=== PATIENT | male | born 1940 | race Caucasian/White ===

== ENCOUNTER 2022-03-14 12:02 | Outpatient (CLI) | payer MEDICARE, SELFPAY ==
[2022-03-14 19:40] LABS: Basophils Absolute Auto 0.1 K/mm3 (0.0-0.1); Basophils Percent Auto 0.9 % (0.2-1.2); Eosinophils Absolute Auto 0.4 K/mm3 (0-0.3); Eosinophils Percent Auto 4.8 % (0-4.4); Hemoglobin 15.3 g/dL (14.0-18.0); Immature Granulocyte Absolute 0.02 K/mm3 (0.00-0.031); Immature Granulocyte Percent A 0.3 % (0-0.5); Lymphocytes Absolute Auto 1.67 K/mm3 (0.9-3.2); Lymphocytes Percent Auto 21.7 % (18.3-44.2); Mean Corpuscular Hemoglobin 32.5 pg (26-34); Mean Corpuscular Volume 95.5 fl (80-100); Mean Platelet Volume 9.9 fl (7.4-10.4); Monocytes Percent Auto 12.9 % (2.6-8.5); Neutrophils Absolute Auto 4.6 K/mm3 (1.3-6.7); Neutrophils Percent Auto 59.4 % (45.5-73.1); Platelet Count Result 211 k/mm3 (150-375); Red Blood Count 4.71 M/mm3 (4.6-6.20); Red Cell Distribution Width 13.1 % (11.5-14.5); White Blood Count 7.7 K/mm3 (4.5-10.0)
[2022-03-14 19:56] LABS: Alanine Aminotransferase 50 U/L (6-50); Albumin Level 4.3 g/dL (3.5-5.1); Alkaline Phosphatase 74 U/L (38-126); Anion Gap 12 mmol/L (8-16); Aspartate Amino Transferase 41 U/L (17-59); Bilirubin,Total 0.9 mg/dL (0.2-1.3); Blood Urea Nitrogen 19 mg/dL (9-20); Calcium 8.8 mg/dL (8.4-10.2); Carbon Dioxide 25 mmol/L (22-30); Chloride 101 mmol/L (98-107); Estimated Glomerular Filt Rate > 60; Glucose 107 mg/dL (65-110); Potassium 4.1 mmol/L (3.4-5.0); Sodium 138 mmol/L (137-145)
== END 2022-03-14 12:03 | disposition home or self-care (01) ==
LOC: ANHGOSHLAB 12:07
PROVIDERS: PCP Family Medicine; Visit Provider Family Medicine
DX: R53.83 Other fatigue (principal)
CPT/HCPCS: 36415; 80053; 84443; 85025

== ENCOUNTER 2022-04-14 07:56 | Outpatient (CLI) | payer MEDICARE, SELFPAY ==
--- NOTE | 2022-05-05 21:16 | WPDSLEEPSTUD ---
Sleep Study Date of Study: 04/14/22 Ordering Provider: Minesh León MD Interpreting Physician: Rut Enrique MD Sleep Study Type: Split Polysomnogram Height: 1.83 m Weight: 104.326 kg Body Mass Index: 31.1 Neck Circumference (inches): 18 [place]: 2 Reason for Sleep Study Long periods of sleep, 10-12 hours, always tired in the day Sleep History Carlos Joshi is an 81-year-old man who a sleeps 10-12 hours at night yet is always tired in the day. He does not awaken from sleep feeling short of breath or awaken at night with heartburn, belching or coughing. He rarely snores and rarely is it loud enough that others complain about it. Occasionally has trouble sleeping with a cold. He does not wake up gasping for breath at night. He rarely has breathing problems at night observed by others. He rarely sweats excessively at night or notices his heart pounding or beating irregularly at night. He rarely falls asleep during the day, never falls asleep involuntarily or while driving. He does not have loss of muscle tone with strong emotion. He does not have daytime difficulties due to excessive sleepiness. He does not feel paralyzed on waking or falling asleep. He rarely has vivid dreamlike scenes on waking or falling asleep. He does not feel afraid to go to sleep. He rarely has nightmares. He rarely remembers his dreams. He does not have racing thoughts. He rarely feels sad, depressed or anxious. He does not have muscular tension. He rarely notices parts of his body jerking. He does not kick at night. He does not have crawling or aching feelings in his legs or any kind of leg pain at night. He does not have morning jaw pain and does not grind his teeth during sleep. He rarely is bothered by pain during the day rarely awakened by pain at night. He does not wake up feeling stiff in the morning. He rarely wakes up with sore or achy muscles. He does not wake up with pain in the neck and spine. He has fatigue and tremors. Normal Bedtime is 9:00 p.m. falling asleep within a 1/2 hour, typically waking 2-3 times at night, goes to the bathroom while awaken returns to sleep within 5 minutes. His normal wake time is a.m.. On weekends, he may stay awake until 10:00 p.m., wakes at 8:00 a.m.. He takes naps in the afternoon. A short nap is not refreshing. He is drowsy for 3 hours after waking. He feels better in the afternoon compared to other times of day. Only on occasion does he awaken feeling refreshed. Habits: former tobacco smoker. No caffeine. Alcohol 2-3 drinks a day. No recreational drugs. FORMERLY [facility], [facility] Past Medical History Medical History (Updated 05/05/22 @ 21:42 by Rut Enrique MD) Adjustment disorder with depressed mood Essential (primary) hypertension Essential tremor Generalized anxiety disorder Obesity (BMI 30.0-34.9) Surgical History Surgical History History of toe surgery History of tonsillectomy Family History Family History Father Family history of cardiovascular disease Acute myocardial infarction Family history of coronary artery disease Mother Family history of malignant neoplasm of breast in first degree relative Other Hypertension No family history of malignant neoplasm Social History Social History Smoking status: Never smoker Second hand tobacco smoke exposure: No Smoking end date: 05/18/88 Alcohol intake: current Drinks per week: 12 Substance use: never Substance use type: does not use Gender identity (if verbalized by the patient): Male Spiritual care concerns: Yes (Religious) Agree to blood products: Yes Medications Home Medications Medication Instructions Recorded Confirmed Type tadalafil 20 mg tablet (Cialis) 20 mg PO DAILY PRN sexual activity 11/21/19
[2022-05-05 21:44] VITALS: BMI 31.1
--- NOTE | 2022-11-11 15:37 | SLEEP ---
PT IS USING DEVICE NIGHTLY F/U AFTER PT VISIT W/ MD
== END 2022-04-15 06:46 | disposition home or self-care (01) ==
LOC: ANHCSM 07:56
PROVIDERS: PCP Family Medicine; Visit Provider Family Medicine
DX: R53.83 Other fatigue (principal); G47.8 Other sleep disorders; G47.33 Obstructive sleep apnea (adult) (pediatric)
CPT/HCPCS: 95811

== ENCOUNTER 2022-11-14 12:32 | Outpatient (CLI) | payer MEDICARE, SELFPAY ==
[2022-11-14 15:22] LABS: Basophils Absolute Auto 0.1 K/mm3 (0.0-0.1); Eosinophils Absolute Auto 0.4 K/mm3 (0-0.3); Eosinophils Percent Auto 5.9 % (0-4.4); Hematocrit 43.5 % (42.0-52.0); Hemoglobin 14.9 g/dL (14.0-18.0); Immature Granulocyte Absolute 0.01 K/mm3 (0.00-0.031); Immature Granulocyte Percent A 0.1 % (0-0.5); Lymphocytes Absolute Auto 1.62 K/mm3 (0.9-3.2); Mean Corpuscular HGB Conc 34.3 g/dl (32-36); Mean Corpuscular Hemoglobin 32.4 pg (26-34); Mean Corpuscular Volume 94.6 fl (80-100); Mean Platelet Volume 9.8 fl (7.4-10.4); Monocytes Absolute Auto 0.9 K/mm3 (0.1-0.6); Monocytes Percent Auto 13.5 % (2.6-8.5); Neutrophils Absolute Auto 3.8 K/mm3 (1.3-6.7); Neutrophils Percent Auto 55.5 % (45.5-73.1); Platelet Count Result 222 k/mm3 (150-375); Red Cell Distribution Width 13.1 % (11.5-14.5); White Blood Count 6.8 K/mm3 (4.5-10.0)
[2022-11-14 17:00] LABS: Creatinine Urine 41.1 mg/dL
[2022-11-14 18:15] LABS: MALB Creatinine Ratio 967.4 mg/g (0-30); Microalbumin Urine Random 397.6 mg/L (0-16.7)
[2022-11-14 18:28] LABS: Hemoglobin A1C 5.3 % (<5.7)
[2022-11-14 18:50] LABS: Alanine Aminotransferase 40 U/L (6-50); Albumin Level 4.1 g/dL (3.5-5.1); Alkaline Phosphatase 72 U/L (38-126); Anion Gap 4 mmol/L (8-16); Aspartate Amino Transferase 47 U/L (17-59); Bilirubin,Total 1.1 mg/dL (0.2-1.3); Blood Urea Nitrogen 17 mg/dL (9-20); Calcium 8.9 mg/dL (8.4-10.2); Carbon Dioxide 31 mmol/L (22-30); Chloride 102 mmol/L (98-107); Cholesterol 170 mg/dL (0-200); Estimated Glomerular Filt Rate > 60; Glucose 80 mg/dL (65-110); HDL Direct 47 mg/dL; Potassium 3.7 mmol/L (3.4-5.0); Sodium 137 mmol/L (137-145); Triglycerides 137 mg/dL (<150)
[2022-11-14 19:01] LABS: LDL Cholesterol Direct 90 mg/dL
== END 2022-11-14 12:33 | disposition home or self-care (01) ==
LOC: ANHGOSHLAB 12:33
PROVIDERS: PCP Family Medicine; Visit Provider Family Medicine
DX: E11.9 Type 2 diabetes mellitus without complications (principal); F32.9 Major depressive disorder, single episode, unspecified; G25.0 Essential tremor; R27.0 Ataxia, unspecified; R53.83 Other fatigue; E78.5 Hyperlipidemia, unspecified
CPT/HCPCS: 36415; 80053; 80061; 82043; 82607; 83036; 84443; 85025

== ENCOUNTER → 2022-11-21 10:39 | Outpatient (CLI) | payer MEDICARE, SELFPAY ==
--- NOTE | ~2022-11-21 | MR_ITS ---
EXAMINATION: MR brain/brain stem wo con DATE: 11/21/2022 11:30 INDICATION: Ataxia, unspecified. TECHNIQUE: Magnetic resonance imaging (MRI) of the brain and brainstem was performed without intraven ous contrast. COMPARISON: None. FINDINGS: There is diffuse brain volume loss. There are scattered areas of nonspecific increased T2-w eighted signal intensity in the cerebral white matter, which is within normal limits for the patient' s age. There is no intracranial hemorrhage, acute infarction, or abnormal intracranial mass lesion. T he ventricles are normal in size. There is mucosal thickening in the paranasal sinuses. There are lik courtney changes of ocular lens replacement surgeries. The mastoid air cells are normal. IMPRESSION: 1. Normal aging brain. Reviewed, dictated and finalized at location A. IMPRESSION: 1. Normal aging brain.
== END ==
PROVIDERS: PCP Family Medicine; Visit Provider Family Medicine
DX: R27.0 Ataxia, unspecified (principal)
CPT/HCPCS: 70551

== ENCOUNTER 2023-01-09 13:05 | Outpatient (CLI) | payer MEDICARE, SELFPAY ==
--- NOTE | ~2023-01-09 | US_ITS ---
US renal BI 01/09/2023 13:39 Procedure: Realtime transabdominal ultrasound of the kidneys and bladder. Indication: Proteinuria Comparison: No prior studies for comparison. Findings: Renal echotexture is normal bilaterally without hydronephrosis, contour deforming mass or r enal calculus. The right kidney measures 13.1 cm and left kidney measures 13.7 cm. There is an enlarg ed prostate gland. Bladder within normal limits. Impression: 1: Enlarged prostate gland. Reviewed, dictated and finalized at location B. Impression: 1: Enlarged prostate gland.
== END 2023-01-09 13:06 | disposition home or self-care (01) ==
PROVIDERS: PCP Family Medicine; Visit Provider Internal Medicine Nephrology
DX: R80.9 Proteinuria, unspecified (principal); N40.0 Benign prostatic hyperplasia without lower urinary tract symptoms
CPT/HCPCS: 76775

== ENCOUNTER 2023-08-17 13:32 | Outpatient (CLI) | payer MEDICARE, SELFPAY ==
--- NOTE | ~2023-08-17 | XR_ITS ---
XR knee LT 3V DATE: 08/17/2023 13:48 INDICATION: Left knee pain TECHNIQUE: [place], AP and lateral views COMPARISON: None FINDINGS: There is patellofemoral joint space narrowing and periarticular spurring. There is moderate ly prominent loss of lateral department joint space with periarticular spurring. No fracture or dislocation or significant joint effusion is evident. No periosteal reaction or bone d estruction. No radiopaque intra-articular loose body or chondrocalcinosis is noted. IMPRESSION: Moderately severe osteoarthritis involving particularly the patellofemoral and lateral co mpartments Reviewed, dictated and finalized at location B. IMPRESSION: Moderately severe osteoarthritis involving particularly the patello femoral and lateral compartments
--- NOTE | ~2023-08-17 | XR_ITS ---
XR knee RT 3V DATE: 08/17/2023 13:48 INDICATION: Right knee pain TECHNIQUE: AP, lateral, sunrise views COMPARISON: None FINDINGS: there is joint space narrowing and periarticular spurring at the patellofemoral and lateral compartments. No fracture or dislocation or joint effusion, periosteal reaction or bone destruction, radiopaque int ra-articular loose body. IMPRESSION: Moderately severe osteoarthritis involving the patellofemoral and lateral compartments Reviewed, dictated and finalized at location B. IMPRESSION: Moderately severe osteoarthritis involving the patellofemoral and l ateral compartments
== END 2023-08-17 13:33 ==
PROVIDERS: PCP Family Medicine; Visit Provider Family Medicine
DX: M25.562 Pain in left knee (principal); M25.561 Pain in right knee; M17.0 Bilateral primary osteoarthritis of knee
CPT/HCPCS: 73562

== ENCOUNTER 2023-09-17 14:00 | Outpatient (RCR) | payer MEDICARE, SELFPAY ==
--- NOTE | 2023-08-27 16:21 | OPREHPOC ---
Outpatient Therapy Plan of Care This is a Multidisciplinary Plan of Care that may contain components documented by all disciplines (PT, OT, and ST.) PT Problem 1 PT Problem #1 Knowledge Deficit PT Goal 1 Goal Pt to be IND with issued HEP Target Visit 8 PT Problem 2 PT Problem #2 Impaired Balance PT Goal 1 Goal Pt to improve single leg stance to 10s ea side. Target Visit 8 PT Goal 2 Goal Pt to be able to maintain eyes closed position for 10s. Target Visit 8 PT Problem 3 PT Problem #3 Impaired Strength PT Goal 1 Goal Pt to demonstrates a functional life and carry with 20lb from ground level Target Visit 8 PT Problem 4 PT Problem #4 Impaired Gait PT Goal 1 Goal Pt to be able to ambulate for 2 mins without a LOB . Target Visit 8 PT Goal 2 Goal Pt to limit scissoring gait pattern during ambulation. Target Visit 8
--- NOTE | 2023-08-27 16:21 | PTOPEVAL1 ---
Assessment and note entered by Petar Bustillo, PT, DPT Evaluation Information Assessment Status Evaluation Diagnosis ataxia, dave knee OA Subjective Information Pt reports severe arthritis is both knees, he wears dave knee braces. He reports he normally wears knee braces in the winter when his arthritis is worse, he states it does not feel like he could take them off now. He states his equilibrium also seems off as well has L sided finger numbness, states he is seeing a neurologist for this next week. He states because of knee pain, balance, and uncertainty with his knee, he limits how far he walks. He declines any pain when at rest, at 5/10 at its worst. He declines any falls. Pt takes care of his own housework and does light yard work. Reported Pain Level Pain Score 0: Self Report Assessment PT Clinical Summary Carlos presents to therapy today for his initial evaluation with a diagnosis of ataxia and dave knee OA. Today he demonstrates fair LE strength with functional movement assessment, he has limited hip ROM into extension. He ambulates with a flexed posture, a narrow stance, and with decreased foot clearance. He stumbles multiple times during the 2 min walk assessment. Skilled therapy services are indicated to improve balance, strength, functional mobility, and to minimize fall risk. Plan of Care Interventions Electrical Stimulation,Gait Training,Hot Pack/Cold Pack,Manual Therapy,Neuro Re-education,Patient/ Caregiver Educati,Therapeutic Activities, Therapeutic Exercise PT Services Indicated Yes Treatment Frequency and 2x/wk for 8 visits Duration These treatments will address the objective and functional deficits as defined above. The patient will be advanced safely and appropriately in order for the patient to progress towards his/her prior level of function. Additional exercises will be introduced and as well as a comprehensive home exercise program upon discharge, if needed, ?to ensure carryover of functional gains achieved in the clinic. This treatment plan has been reviewed and agreement upon by the patient.
--- NOTE | 2023-10-13 15:05 | PTOPDC ---
Assessment and note entered by Markel Alberto, PT Evaluation Information Assessment Status Discharge - Pt Not Present Diagnosis ataxia, dave knee OA Subjective Information Patient contacted clinic to inform that he was going to be seeking knee surgery at this time. Requested discharge from skilled therapy. Assessment PT Clinical Summary Patient to be discharged from skilled therapy at this time for dave knee pain. Patient was present for 7 visits. Patient has HEP issued to continue exercise at home as needed. Plan of Care PT Services Indicated D/C to HEP per patient request
== END 2023-10-13 15:32 | disposition home or self-care (01) ==
LOC: ANHGOSHPT 14:00
PROVIDERS: PCP Family Medicine; Visit Provider Family Medicine
DX: M17.0 Bilateral primary osteoarthritis of knee (principal); R27.0 Ataxia, unspecified
CPT/HCPCS: 97110; 97112; 97161; 97530

== ENCOUNTER 2024-01-19 12:25 | Outpatient (CLI) | payer MEDICARE, SELFPAY ==
--- NOTE | 2024-01-19 14:45 | NEURO_ITS ---
Impression: # Complains of numbness of feet. # Normal Nerve Conduction Study. # Normal needle/EMG exam. # Possibility of higher involvement needs to be ruled out. Nerve Conduction Studies Anti Sensory Summary Table Stim Site NR Peak (ms) P-T Amp (?V) Site1 Site2 Delta-P (ms) Dist (cm) Antony (m/s) Left Sup Fibular Anti Sensory (Ant Lat Mall) 14 cm 3.4 15.0 14 cm Ant Lat Mall 3.4 16.0 47 Right Sup Fibular Anti Sensory (Ant Lat Mall) 14 cm 3.3 13.0 14 cm Ant Lat Mall 3.3 16.0 48 Left Sural Anti Sensory (Lat Mall) Calf 3.8 12.0 Calf Lat Mall 3.8 16.0 42 Right Sural Anti Sensory (Lat Mall) Calf 3.8 10.2 Calf Lat Mall 3.8 16.0 42 Motor Summary Table Stim Site NR Onset (ms) O-P Amp (mV) Site1 Site2 Delta-0 (ms) Dist (cm) Antony (m/s) Left Peroneal Motor (Vastus Med) Ankle 4.3 5.4 Popit Ankle 9.5 42.0 44 Popit 13.8 3.6 Right Peroneal Motor (Vastus Med) Ankle 4.5 2.8 Popit Ankle 9.1 40.0 44 Popit 13.6 1.9 Left Tibial Motor (Abd Simpson Brev) Ankle 5.0 2.7 Knee Ankle 9.2 44.0 48 Knee 14.2 1.4 Right Tibial Motor (Abd Simpson Brev) Ankle 4.8 2.2 Knee Ankle 9.8 42.0 43 Knee 14.6 1.5 F Wave Studies NR F-Lat (ms) L-R F-Lat (ms) Left Peroneal (Mrkrs) (EDB) 56.10 0.16 Right Peroneal (Mrkrs) (EDB) 55.94 0.16 Left Tibial (Mrkrs) (Abd Hallucis) 57.47 0.65 Right Tibial (Mrkrs) (Abd Hallucis) 56.82 0.65 EMG Side Muscle Nerve Root Ins Act Fibs Amp Dur Recrt Comment Right AntTibialis Dp Br Fibular L4-5 Nml Nml Nml Nml Nml Right Gastroc Tibial S1-2 Nml Nml Nml Nml Nml Right Fibularis Long Sup Br Fibular L5-S1 Nml Nml Nml Nml Nml Right Flex Dig Long Tibial L5-S2 Nml Nml Nml Nml Nml Right Ext Dig Brev Dp Br Fibular L5, S1 Nml Nml Nml Nml Nml Right QuadratusFem QuadFemoris L4-5, S1 Nml Nml Nml Nml Nml Left AntTibialis Dp Br Fibular L4-5 Nml Nml Nml Nml Nml Left Gastroc Tibial S1-2 Nml Nml Nml Nml Nml Left Fibularis Long Sup Br Fibular L5-S1 Nml Nml Nml Nml Nml Left Flex Dig Long Tibial L5-S2 Nml Nml Nml Nml Nml Left Ext Dig Brev Dp Br Fibular L5, S1 Nml Nml Nml Nml Nml Left QuadratusFem QuadFemoris L4-5, S1 Nml Nml Nml Nml Nml MTDD
== END 2024-01-19 12:26 | disposition home or self-care (01) ==
LOC: ANHNEURO 12:28
PROVIDERS: PCP Family Medicine; Visit Provider Student in an Organized Health Care Education/Training Program
DX: G62.9 Polyneuropathy, unspecified (principal); R26.81 Unsteadiness on feet; R20.2 Paresthesia of skin
CPT/HCPCS: 95886; 95910

== ENCOUNTER 2024-04-06 19:47 | Emergency (ER) | payer MEDICARE, SELFPAY ==
--- NOTE | ~2024-04-06 | CT_ITS ---
EXAMINATION: CT brain wo con DATE: 04/06/2024 21:02 INDICATION: Head injury. TECHNIQUE: Computed tomography (CT) of the head was performed without intravenous contrast. The mA wa s adjusted according to patient size. Iterative reconstruction technique was employed. The dose-lengt h product was 681.00 mGy-cm. COMPARISON: Brain MRI 11/21/2022 FINDINGS: There is no intracranial hemorrhage, acute infarction, or abnormal intracranial mass lesion . The ventricles are normal in size. There are likely changes of ocular lens replacement surgeries. T here is mucosal thickening in the paranasal sinuses. The mastoid air cells are normal. There is a rig ht-sided scalp laceration. IMPRESSION: 1. Normal brain. Reviewed, dictated and finalized at location A. PRESIDENT OF SALES IMPRESSION: 1. Normal brain.
[2024-04-06 19:52] VITALS: BP 160/71; PULSE 77; RESP 16; TEMP 36.6; O2SAT 97
--- NOTE | 2024-04-06 20:59 | PC.NURSE ---
Pt to CT. Pt reports 0/10 pain. Bleeding controlled at this time. at bedside.
--- NOTE | 2024-04-06 21:47 | ED_ITS ---
HPI - General Adult General Chief complaint: Wound/Laceration Stated complaint: fell, hit head, lac, no blood thinner, no LOC Time Seen by Provider: 04/06/24 20:13 History of Present Illness HPI narrative: patient is an 83-year-old male who presents to the emergency department this evening after a ground level fall and a head laceration. Patient states that he was taking out the trash and accidentally slipped and fell hitting the right side of his head on the ground. Patient denies any loss of consciousness and denies any blood thinner use. Admits that he was ambulatory after the incident and denies any additional injuries. He is moving all 4 extremities spontaneously. Denies any headache, dizziness, blurry vision, focal weakness, numbness and tingling. Tetanus is not up-to-date. Patient also denies any neck pain. No additional symptoms or concerns at this time. Related Data Allergies Allergy/AdvReac Type Severity Reaction Status Date / Time No Known Allergies Allergy Verified 03/23/24 12:36 Review of Systems Review of Systems: All systems are reviewed and are negative unless stated otherwise in the HPI. COUNTS INCLUDE 234 BEDS AT THE [facility] Past Medical History Medical History Adjustment disorder with depressed mood Essential (primary) hypertension Essential tremor Generalized anxiety disorder Obesity (BMI 30.0-34.9) Surgical History Surgical History History of toe surgery History of tonsillectomy Family History Family History Father Family history of cardiovascular disease Acute myocardial infarction Family history of coronary artery disease Mother Family history of malignant neoplasm of breast in first degree relative Other Hypertension No family history of malignant neoplasm Social History Social History Smoking status: Former smoker Second hand tobacco smoke exposure: No Smoking end date: 05/18/88 Alcohol intake: current Drinks per week: 12 Substance use: never Substance use type: does not use Current Housing: Decline to Answer Concerned About Future Housing: Decline to Answer Difficulty Paying Gas/Electric Bills: Decline to Answer Difficulty Paying for Meds: Decline to Answer Currently Unemployed: Decline to Answer Education: Decline to Answer Difficulty w/ Childcare or Family Care: Decline to Answer Living arrangements: alone Occupation/Education: retired Gender identity (if verbalized by the patient): Male Spiritual care concerns: Yes (Mormonism) Agree to blood products: Yes Exam Narrative: General: Alert, awake, afebrile, in no acute distress. HEENT: PERRL, no rhinorrhea, no post nasal drip, oropharynx clear, 10 cm linear laceration to the right side of the scalp, galea inact. Neck: Trachea midline, no JVD, no lymphadenopathy, no midline tenderness to palpation over the cervical spine. Cardiovascular: Regular rate and rhythm, no murmurs, rubs or gallops, no peripheral edema. Respiratory: Clear to auscultation bilaterally, no tachypnea, no wheezing, no rhonchi, no rubs, no respiratory distress. Abdomen: Soft, nontender, nondistended, no rebound, no guarding, no peritoneal signs. Musculoskeletal: No joint swelling or deformity, normal muscle tone. Skin: No rashes or petechia, no signs of infection. Psychiatric: Alert and oriented, normal behavior and judgment for situation. Neurological: Alert and oriented to person, place, and time. Follows all commands. No focal deficits, speech is clear and fluent. Course Vital Signs Vital signs: Vital Signs Temperature 97.8 F 04/06/24 19:52 Pulse Rate 77 04/06/24 19:52 Respiratory Rate 16 04/06/24 19:52 Blood Pressure 160/71 H 04/06/24 19:52 Pulse Oximetry 97 04/06/24 19:52 Oxygen Delivery Room Air 04/06/24 19:52 Temperature 97.8 F 04/06/24 19:52 Pulse Rate 77 04/06/24 19:52 Respiratory Rate 16 04/06/24 19:52 Blood Pressure 160/71 H 04/06/24 19:52 Pulse Oximetry 97 04/06/24 19:52 Oxygen Delivery Room Air 04/06/24 19:52 Procedures Laceration Laceration 1: Date: 04/06/24 Time: 23:01 Site: scalp Side (If applicable): right Size (cm): 10 Description: linear Depth: simple, single layer Local Anesthetic: lidocaine 1% Amount of anesthesia used (mL): 5 Pre-repair: wound explored, irrigated, irrigated extensively, deep structures intact and wound margins revised ====== Skin Level ====== Skin layer closed with: kalin Number of sutures: 20 ====== Subcutaneous Layer ====== ====== Muscle Layer ====== ====== Tendon Layer ====== Medical Decision Making MDM Narrative Medical decision making narrative: The patient was evaluated by myself in the emergency department. History is obtained from patient who is an independent historian and physical exam was performed. External medical records were reviewed at this time. Tetanus updated. Imaging studies obtained included CT brain without IV contrast which was independently interpreted by me revealing no acute process, which is pending final radiology interpretation. Differential diagnosis considerations include laceration, abrasion, fractures, intracranial hemorrhage. Comorbidities impacting this visit include none. I have evaluated and discussed social determinants of health with the patient that could potentially impact subsequent diagnosis and treatment plans. On repeat assessment of the patient, reevaluation revealed that the patient is doing well and is in no acute distress. Patient symptoms have improved since he arrived to our emergency department. Repeat vital signs were all reviewed and noted to be stable. Differential diagnosis and treatment plan were discussed with the patient at bedside. Patient agrees with discussion and after shared m edical decision making agrees with discharge. All questions were answered to the patient's satisfaction. Patient will follow up with his primary care physician within the next week. He was informed that the 20 kalin that were placed today need to be removed by medical professional within the next 7-10 days. Patient was provided with strict return precautions and instructed to return to the emergency department if any new or worsening symptoms develop. The patient was discharged in stable condition. Vital Signs Vital Signs: Vital Signs Temperature 97.8 F 04/06/24 19:52 Pulse Rate 77 04/06/24 19:52 Respiratory Rate 16 04/06/24 19:52 Blood Pressure 160/71 H 04/06/24 19:52 Pulse Oximetry 97 04/06/24 19:52 Oxygen Delivery Room Air 04/06/24 19:52 Temperature 97.8 F 04/06/24 19:52 Pulse Rate 77 04/06/24 19:52 Respiratory Rate 16 04/06/24 19:52 Blood Pressure 160/71 H 04/06/24 19:52 Pulse Oximetry 97 04/06/24 19:52 Oxygen Delivery Room Air 04/06/24 19:52 Discharge Plan Discharge Clinical Impression: Head injury, Complex laceration of scalp, Fall from ground level Patient Disposition: Home, Self-Care Condition: Improved Instructions: Antibiotic Form, Laceration (ED), Fall Prevention for Older Adults (ED), Head Injury (DC) Additional Instructions: Please follow-up with your family doctor within the next week. You will need to have the 20 kalin placed today removed by medical professional within the next 7-10 days. Return to the emergency department if any new or worsening symptoms develop. Take Tylenol as needed for pain. Prescriptions: No Action (DME) CPAP See Rx Instructions .Route .MEDSUPPLY Qty: 1 0RF Rx Instructions: ResMed AirFit F20 fullface mask and heated humidity and all suuplies. fluticasone propionate 50 mcg/actuation spray,suspension 2 spray NASAL BID Qty: 18.2 3RF Jardiance 10 mg tablet 10 mg PO DAILY Qty: 90 3RF primidone [Mysoline] 50 mg tablet 150 mg PO QHS Qty: 300 3RF propranolol 80 mg capsule,extended release 24hr 80 mg PO DAILY Qty: 90 4RF doxazosin 8 mg tablet See Rx Instructions .ROUTE .COMPLEX Qty: 100 1RF Dose Instruction: TAKE 1 TABLET BY MOUTH DAILY Rx Instructions: TAKE 1 TABLET BY MOUTH DAILY finasteride 5 mg tablet See Rx Instructions .ROUTE .COMPLEX Qty: 100 1RF Dose Instruction: TAKE 1 TABLET BY MOUTH DAILY Rx Instructions: TAKE 1 TABLET BY MOUTH DAILY fluoxetine 20 mg capsule 20 mg PO BID Qty: 200 1RF lisinopril 30 mg tablet 30 mg PO BID Qty: 180 3RF chlorthalidone 25 mg tablet 25 mg PO DAILY Qty: 90 3RF Follow-up/Referrals: Minesh León MD [Primary Care Provider] - 1 Week Time of Disposition: 22:23
[2024-04-06] MEDS: TETANUS,DIPHTHERIA,AC PERTUSSIS ADULT (0.5 ML) BOOSTRIX IM (23:02)
[2024-04-06 23:32] VITALS: BP 156/69; PULSE 65; RESP 16; O2SAT 94
== END 2024-04-06 23:33 | disposition home or self-care (01) ==
PROVIDERS: Emergency Provider Emergency Medicine; PCP Family Medicine
DX: S01.01XA Laceration without foreign body of scalp, initial encounter (principal); I10 Essential (primary) hypertension; F41.9 Anxiety disorder, unspecified; R25.1 Tremor, unspecified; Z23 Encounter for immunization; W01.0XXA Fall on same level from slipping, tripping and stumbling without subsequent striking against object, initial encounter
CPT/HCPCS: 12004; 70450; 90471; 90715; 99283

== ENCOUNTER 2024-07-27 15:20 | Outpatient (CLI) | payer MEDICARE, SELFPAY ==
--- NOTE | ~2024-07-27 | CT_ITS ---
CT Angiogram of the Abdomen: Indication: Renal artery stenosis Technique: 2.5 mm axial scans were obtained through the abdomen following intravenous administration of 100 cc of Omnipaque 350. 3-D reformatted images were performed. Dose reduction technique was used on this scan by utilizing automated exposure control and iterative reconstruction technique. The dos e-length product (DLP) was 873.59 mGy-cm. Findings: Scans through the lung bases are unremarkable. The liver, spleen, pancreas, gallbladder, left adrenal gland, and kidneys are within normal limits. 1 0 mm right adrenal nodule is indeterminate. No lymphadenopathy. There is extensive atherosclerotic calcification of the aorta and visualized iliac vessels. No aortic aneurysm. There is calcified plaque at the origin of the celiac artery, with probable focal moderate to high-grade stenosis. SMA origin is widely patent. Left renal artery widely patent, unremarkable. Right renal artery widely patent, unremarkable. Inferior mesenteric artery is patent. Visualized bowel is unremarkable.. No ascites. Impression: No evidence of renal artery stenosis. 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 Indeterminate 10 mm right adrenal nodule. Consider follow-up MR to attempt to confirm adenoma, if ind icated. Reviewed, dictated and finalized at [facility]. Impression: No evidence of renal artery stenosis. 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 Indeterminate 10 mm right adrenal nodule. Consider follow-up MR to attempt to c onfirm adenoma, if indicated.
[2024-07-27 15:54] LABS: Estimated Glomerular Filt Rate 58
--- OUTSIDE RECORDS SUMMARY | 2024-07-27 17:20 | XMS_ITS | Patient Health Summary ---
Author Organization [facility] Address [address] [place] [address] Care Team Providers Care Appraisal Coordinator Name Role Phone Unavailable Primary Care Provider Unavailabl e Note from [facility],non-owned Affiliates and Associated Physician Practices is amultiple site organization consisting of ambulatory clinics and hospital sitesin [place], [place], [place] and [place]. This disclosure is being madepursuant to the Care Everywhere program and may not contain all information available regarding this patient. Last updated 18.[facility] Social History Tobacco Use Types Packs/Day Years Used Date Smoking Tobacco: Never Assessed Sex and Gender Information Value Date Recorded Sex Assigned at Not on file Gender Identity Not on file Sexual Orientation Not on file Procedures * PROSTATE SPECIFIC ANTIGEN SCREEN(Performed 04/20/2008) * LIPID PROFILE(Performed 04/20/2008) * COMPREHENSIVE METABOLIC PANEL(Performed 04/20/2008) * CBC W AUTO DIFFERENTIAL(Performed 04/20/2008) * GROSS + MICRO EXAM(Performed 06/24/2005) * GROSS + MICRO EXAM(Performed 04/27/2001) Results * CBC W AUTO DIFFERENTIAL (04/20/2008 10:07 AM [employer]) WBC 5.4 4.0 - 10.5 x10E3/uL [facility] INSURANCE BILL Comment: Effective April 24, 2008, the pediatric reference intervals will be changing on all result codes that are included in CBC With Differential/Platelet(642152). RBC 4.80 4.10 - 5.60 x10E6/uL [facility] INSURANCE BILL Hemoglobin 15.5 12.5 - 17.0 g/dL [facility] INSURANCE BILL Hematocrit 44.9 36.0 - 50.0 % [facility] INSURANCE BILL MCV 94 80 - 98 fL [facility] INSURANCE BILL MCH 32.2 27.0 - 34.0 pg [facility] INSURANCE BILL MCHC 34.4 32.0 - 36.0 g/dL [facility] INSURANCE BILL RDW 13.1 11.7 - 15.0 % [facility] INSURANCE BILL Platelet Count 251 140 - 415 x10E3/uL [facility] INSURANCE BILL Granulocytes % 55 40 - 74 % [facility] INSURANCE BILL Lymphocytes % 31 14 - 46 % [facility] INSURANCE BILL Monocytes % 9 4 - 13 % [facility] INSURANCE BILL Eosinophils % 4 0 - 7 % [facility] INSURANCE BILL Basophils % 1 0 - 3 % [facility] INSURANCE BILL Granulocytes Absolute 3.0 1.8 - 7.8 x10E3/uL [facility] INSURANCE BILL Lymphocytes Absolute 1.7 0.7 - 4.5 x10E3/uL [facility] INSURANCE BILL Monocytes Absolute 0.5 0.1 - 1.0 x10E3/uL [facility] INSURANCE BILL Eosinophils Absolute 0.2 0.0 - 0.4 x10E3/uL [facility] INSURANCE BILL Basophils Absolute 0.1 0.0 - 0.2 x10E3/uL [facility] INSURANCE BILL Comment Hematology NOT AVAIL. [facility] INSURANCE BILL 04/20/2008 10:0 7 AM [employer] 04/20/2008 6:52 PM [employer] [employer] Narrative [facility] INSURANCE BILL - 04/21/2008 6:10 AM [employer] Additional Result Information HEMATOLOGY COMMENTS: BLOOD,URINE ([facility]): RESULT NOT AVAILABLE Resulting Agency Comment [facility] [address] [phone] Rao Montelongo DO LAB - HEMATOLOGY ORD ERABLES [facility] INSURANCE BILL * (ABNORMAL) COMPREHENSIVE METABOLIC PANEL (04/20/2008 10:07 AM [employer]) Glucose 99 65 - 99 mg/dL [facility] INSURANCE BILL BUN 12 5 - 26 mg/dL [facility] INSURANCE BILL Creatinine 0.70(L) 0.76 - 1.27 mg/dL [facility] INSURANCE BILL eGFR by MDRD >59 >59 mL/min/1.7 3 [facility] INSURANCE BILL eGFR by MDRD >59 >59 mL/min/1.7 3 [facility] INSURANCE BILL Comment: Note: Persistent reduction for 3 months or more in an eGFR <60 mL/min/1.73 m2 defines CKD. Patients with eGFR values >/=60 mL/min/1.73 m2 may also have CKD if evidence of persistent proteinuria is present. Additional information may be found at [email or web address]. BUN/Creatinine Ratio 17 8 - 27 [facility] INSURANCE BILL Sodium 140 135 - 145 mmol/L [facility] INSURANCE BILL Potassium 4.3 3.5 - 5.2 mmol/L [facility] INSURANCE BILL Chloride 104 97 - 108 mmol/L [facility] INSURANCE BILL CO2 22 20 - 32 mmol/L [facility] INSURANCE BILL Calcium 9.3 8.5 - 10.6 mg/dL [facility] INSURANCE BILL Protein Total 7.5 6.0 - 8.5 g/dL [facility] INSURANCE BILL Albumin 4.7 3.6 - 4.8 g/dL [facility] INSURANCE BILL Globulin Total 2.8 1.5 - 4.5 g/dL [facility] INSURANCE BILL Albumin/Globulin Ratio 1.7 1.1 - 2.5 [facility] INSURANCE BILL Bilirubin Total 0.9 0.1 - 1.2 mg/dL [facility] INSURANCE BILL Alkaline Phosphatase 68 25 - 160 IU/L [facility] INSURANCE BILL AST 32 0 - 40 IU/L [facility] INSURANCE BILL ALT 49 0 - 55 IU/L [facility] INSURANCE BILL 04/20/2008 10:0 7 AM [employer] 04/20/2008 6:52 PM [employer] Narrative Resulting Agency Comment [facility] [address] [phone] Rao Montelongo DO LAB - CHEMISTRY ANN SALEH [facility] INSURANCE BILL * PROSTATE SPECIFIC ANTIGEN SCREEN (04/20/2008 10:07 AM [employer]) PSA 1.2 0.0 - 4.0 ng/mL [facility] INSURANCE BILL Comment: Emeli ECLIA methodology. . According to the [place] [employer], PSA should be undetectable after radical prostatectomy. A PSA of less than 0.5 ng/mL (or undetectable) is not likely to be associated with disease recurrence within five years of treatment. Values obtained with different assay methods or kits cannot be used interchangeably. Results cannot be interpreted as absolute evidence of the presence or absence of malignant disease. 04/20/2008 10:0 7 AM [employer] 04/20/2008 6:52 PM [employer] Narrative Resulting Agency Comment [facility] [phone] Rao Everettnatan [facility] - CHEMISTRY ORDUli SALEH [facility] INSURANCE BILL * (ABNORMAL) LIPID PROFILE (04/20/2008 10:07 AM [employer]) Cholesterol 186 100 - 199 mg/dL [facility] INSURANCE BILL Triglycerides 132 0 - 149 mg/dL [facility] INSURANCE BILL HDL Cholesterol 49 >39 mg/dL [facility] INSURANCE BILL Comment: According to ATP-III Guidelines, HDL-C >59 mg/dL is considered a negative risk factor for CHD. VLDL Calculated 26 5 - 40 mg/dL [facility] INSURANCE BILL LDL Calculated 111(H) 0 - 99 mg/dL [facility] INSURANCE BILL Comment [facility] INSURANCE BILL Comment: If initial LDL-cholesterol result is >100 mg/dL, assess for risk factors. 04/20/2008 10:0 7 AM [employer] 04/20/2008 6:52 PM [employer] Narrative Resulting Agency Comment [facility] [phone] Rao Everettnatan [facility] - CHEMISTRY ORDE DELFINO [facility] INSURANCE BILL * GROSS + MICRO EXAM (06/24/2005 11:29 AM [employer]) Only the most recent of2 resultswithin the time period is included. Result CASE NUMBER [id number] Comment: ORDERING PHYSICIAN HIMA DANG SPECIMEN TYPE Colon polyp-sigm. Surgeon DR. HIMA DANG Gross Exam ABIGAIL MURRAY Gross Report COPY TO DR. MONTELONGO INDICATION FOR PROCEDURE HISTORY OF COLON POLYPS OPERATION COLONOSCOPY GROSS THE SPECIMEN IS RECEIVED IN ONE CONTAINER LABELED WITH THE PATIENT'S NAME AND SIGMOID POLYP AND CONSISTS OF A 0.8 X 0.7 X 0.5 CM. [place] POLYP. BISECTED AND ALL SUBMITTED IN A SINGLE CASSETTE. LW/CS MICROSCOPIC EXAM MICROSCOPIC SECTIONS OF THE SIGMOID COLON POLYP SHOW FRAGMENTS OF COLONIC MUCOSA DISPLAYING CHARACTERISTICS OF TUBULAR ADENOMA. NO INVASIVE MALIGNANCY IS SEEN. JW/CS DIAGNOSIS DIAGNOSIS [1] SIGMOID COLON POLYP -- TUBULAR ADENOMA JW/CS Released By HUANG LEMUS CPT Code 00495 MISCELLANEOUS SAMPLES / Unknown 06/24/2005 11:29 AM [employer] 06/24/2005 11:30 AM [employer] Historical Provider LAB - PATHOLOGY/C YTOLOGY ORDERABLES
--- OUTSIDE RECORDS SUMMARY | 2024-07-27 17:20 | XMS_ITS | Clinical Summary ---
Author Organization [facility] Address [address] [place] [address] [place] [address] Care Team Providers Care Form Designer Name Role Phone Unavailable Primary Care Provider Unavailabl e Source Comments [facility],non-owned Affiliates and Associated Physician Practices is amultiple site organization consisting of ambulatory clinics and hospital sitesin [place], [place], [place] and [place]. This disclosure is being madepursuant to the Care Everywhere program and may not contain all information available regarding this patient. Last updated 18.[facility] Social History Tobacco Use Types Packs/Day Years Used Date Smoking Tobacco: Never Assessed Sex and Gender Information Value Date Recorded Sex Assigned at Not on file Gender Identity Not on file Sexual Orientation Not on file Plan of Treatment Health Maintenance Due Date Last Done Comments DTAP/TDAP/TD VACCINES (1 - Tdap) 1957 PNEUMOCOCCAL VACCINE 50+ (1 of 1 - PCV) 1988 ZOSTER VACCINE (1 of 2) 1988 Respiratory Syncytial Virus (RSV) Vaccine Pt: or over 60 yrs (1 - 1-dose 75+ series) 2013 COVID-19 VACCINE (2023-2 5 season) 2024 INFLUENZA VACCINE (#1) 2024 DEPRESSION SCREENING 05/18/2024 HEPATITIS B VACCINE Aged Out No longe r eligible based on patient's age to complete this topic HIB VACCINE Aged Out No longer eligi ble based on patient's age to complete this topic HPV VACCINE Aged Out No longer eligi ble based on patient's age to complete this topic MENINGOCOCCAL (Group B) VACC INE SHARED DECISION-MAKING Aged Out No longer eligibl e based on patient's age to complete this topic MENINGOCOCCAL GROUPS A/C/Y/W VACCINE Aged Out No longer eligible b ased on patient's age to complete this topic
--- OUTSIDE RECORDS SUMMARY | 2024-07-27 17:20 | XMS_ITS | Referral Summary ---
Author Organization [facility] Address [facility] [place] [address] Care Team Providers Care Carton Gluing Machine Operator Name Role Phone Unavailable Primary Care Provider Unavailabl e Source Comments [facility],non-owned Affiliates and Associated Physician Practices is amultiple site organization consisting of ambulatory clinics and hospital sitesin [place], [place], [place] and [place]. This disclosure is being madepursuant to the Care Everywhere program and may not contain all information available regarding this patient. Last updated 18.[facility] Social History Tobacco Use Types Packs/Day Years Used Date Smoking Tobacco: Never Assessed Sex and Gender Information Value Date Recorded Sex Assigned at Not on file Gender Identity Not on file Sexual Orientation Not on file Plan of Treatment Not on file
== END 2024-07-27 15:21 | disposition home or self-care (01) ==
PROVIDERS: PCP Family Medicine; Visit Provider Internal Medicine Nephrology
DX: I70.1 Atherosclerosis of renal artery (principal); I10 Essential (primary) hypertension
CPT/HCPCS: 74175; Q9967